=== PATIENT | female | born 1950 | race Caucasian/White ===

== ENCOUNTER 2019-01-19 07:46 | Outpatient (CLI) | payer OTHER | END 2019-01-19 13:45 | disposition home or self-care (01) | LOC: SONOGRAMA 07:46 | DX: E04.1 Nontoxic single thyroid nodule (principal); R22.1 Localized swelling, mass and lump, neck ==

== ENCOUNTER 2019-05-28 08:33 | Outpatient (CLI) | payer OTHER | END 2019-05-28 09:12 | disposition home or self-care (01) | LOC: SONOGRAMA 08:33 | DX: E04.2 Nontoxic multinodular goiter (principal) ==